=== PATIENT | female | born 1995 | race American Indian/Alaskan Native ===

== ENCOUNTER 2021-10-21 04:27 | Emergency (ER) | payer BC, OTHER | END 2021-10-21 05:33 | disposition left against medical advice (07) | LOC: DL.ED 04:27 | DX: Z53.21 Procedure and treatment not carried out due to patient leaving prior to being seen by health care provider (principal) ==

== ENCOUNTER 2022-02-20 09:45 | Emergency (ER) | payer MEDICAID ==
[2022-02-20 10:44] LABS: ANION GAP 12.8 mEq/L (7-13)
[2022-02-20] MEDS ORDERED: Ondansetron 4 MG Tab.DIS PO ONE (10:48)
[2022-02-20] MEDS ORDERED: LORazepam 1 MG Tab PO ONE (10:48)
[2022-02-20 11:10] LABS: AMPHETAMINES,URINE NEGATIVE (NEGATIVE); BARBITURATES,URINE NEGATIVE (NEGATIVE); BENZODIAZEPINE,URINE NEGATIVE (NEGATIVE); MDMA (ECSTASY), URINE NEGATIVE (NEGATIVE); METHADONE,URINE NEGATIVE (NEGATIVE); METHAMPHETAMINES,URINE NEGATIVE (NEGATIVE); OPIATES,URINE NEGATIVE (NEGATIVE); OXYCODONE,URINE NEGATIVE (NEGATIVE); PHENCYCLIDINE,URINE NEGATIVE (NEGATIVE); TCA,URINE NEGATIVE (NEGATIVE)
== END 2022-02-20 12:19 | disposition home or self-care (01) ==
LOC: DL.ED 09:45
DX: F11.23 Opioid dependence with withdrawal (principal); F19.20 Other psychoactive substance dependence, uncomplicated; Z72.0 Tobacco use; Z20.822 Contact with and (suspected) exposure to COVID-19
CPT/HCPCS: 36415; 80053; 80305; 81003; 83605; 83735; 85025; 87635; 99284; A9270; 99283; U0002